=== PATIENT | female | born 1970 | race Caucasian/White ===

== ENCOUNTER 2018-01-01 16:56 | Emergency (ER) | payer OTHER ==
[~2018-01-01] VITALS: Ht 162.6 cm; Wt 83.9 kg
[2018-01-01 17:01] VITALS: Ht 162.6 cm; Wt 83.9 kg
[2018-01-01 18:49] VITALS: BP 120/64
== END 2018-01-01 18:49 | disposition home or self-care (01) ==
LOC: ED 16:56
DX: S82.891A Other fracture of right lower leg, initial encounter for closed fracture (principal); X50.1XXA Overexertion from prolonged static or awkward postures, initial encounter; Y93.89 Activity, other specified; Y92.89 Other specified places as the place of occurrence of the external cause; Y99.8 Other external cause status
CPT/HCPCS: J2270; Q0162